=== PATIENT | female | born 1990 | race Caucasian/White ===

== ENCOUNTER → 2021-12-09 14:15 | Outpatient (CLI) | payer BC, SELFPAY ==
--- NOTE | ~2021-12-09 | US_ITS ---
US OB /maternal detail DATE: 12/09/2021 14:46 INDICATION: anatomy screening TECHNIQUE: Real-time imaging and Doppler analysis COMPARISON: None FINDINGS: Live valerio intrauterine gestation, fetus in vertex presentation. heart rate of 14 7 bpm. Anterior placenta, lower margin 5 cm above the internal os. Subjectively normal amount of amniotic fluid. cerebral ventricles, cerebellum, cisterna magna and nuchal fold appear normal. Normal cervical spine, thoracic and lumbar spine. Upper lip appears normal. Four-chamber heart. diaphragm is intact. Fluid is demonstrated in the stomach and urinary bladder. The kidneys are unr emarkable without hydronephrosis. Three-vessel umbilical cord with normal abdominal wall insertion. extremities are confirmed. Biparietal diameter 4.46 cm; 19 weeks 3 days Head circumference 16.99 cm; 19 weeks 4 days Abdominal circumference 13.84 cm; 19 weeks 2 days Femur length 2.88 cm cervical 18 weeks 6 days Composite age by Hadlock formula is 19 weeks 2 days +/- 1 week 2 days with GARFIELD of 05/13/2022, same as that determined by LMP. Estimated weight is 275.2 +/- 41.3 g. Estimated weight-GP: 36.0% Head circumference/abdominal circumference 1.23, within normal range of 1.09-1.26 Femur length/head circumference 16.93, within normal range of 16.30-18.73. IMPRESSION: Normal anatomy screen Composite age by Hadlock formula is 19 weeks 2 days +/- 1 week 2 days with GARFIELD of 05/13/2022, same as that determined by LMP Reviewed, dictated and finalized at [facility]. Reviewed, dictated and finalized at [facility].
== END ==
PROVIDERS: Visit Provider Obstetrics & Gynecology Gynecologic Oncology
DX: Z34.92 Encounter for supervision of normal pregnancy, unspecified, second trimester (principal); Z3A.19 19 weeks gestation of pregnancy
CPT/HCPCS: 76805

== ENCOUNTER 2023-09-14 00:12 | Day surgery (SDC) | payer OTHER, SELFPAY ==
[2023-09-08 15:00] VITALS: BMI 24.0
--- NOTE | 2023-09-08 15:06 | PC.NURSE ---
Report to the Outpatient Waiting Room, entrance under the green pavilion located off [facility], at time _0830_ on date _[id number]_. Planned Procedure Time: _1030_. Time changes happen often and if your time is changed the preop area will call you the afternoon before. - You and your visitor will be asked to self-screen and do not enter if you have any COVID symptoms. - A mask is optional within the hospital at this time. Patients may have clear liquids (water, carbonated beverages, clear teas, apple juice) until 3 hours prior to surgery with a maximum of 20 ounces. - No food from midnight until time of surgery Take the following medications with a SIP of water the morning of surgery: ___None DO NOT STOP ANY OF YOUR OTHER PRESCRIPTION MEDICATIONS PRIOR TO SURGERY ?EXCEPT THE FOLLOWING Medications to discontinue per physician None Date to take last dose Please no make-up, nail chinese, hairspray, perfume, deodorant, or body powder the day of surgery. No jewelry (including any body piercings) or valuables the day of surgery, leave them at home. Please take a shower or bath the night before, or the morning of, surgery with an antibacterial soap. Wear comfortable, loose fitting clothing. - Jewelry must be removed prior to entering the operating room. Rings and piercings that are not removed may be cut off. - The hospital will not accept responsibility for valuables. - Please leave all valuables, including medications, at home the day of surgery. If you are going home after surgery, a licensed skip load driver must drive you home. - NO public transportation without another adult if you receive anesthesia. - We recommend that an adult stay with you for 24 hours following discharge. - We also recommend that you do not drive, make important decision, drink alcoholic beverages, or take any drugs that were not prescribed by your health care provider for at least 24 hours after your discharge time. Follow any additional instructions given to you from your surgeon. If you or anyone in your household have experienced Covid symptoms in the past week, please notify your surgeon or the nurse liaison at the phone number below for possible testing. Telephone instructions given to _Shaina_and asked if any additional questions and then verbalized understanding. Patient advised to call surgeon office or pre surgery nurse liaison [phone] if any additional questions.
[2023-09-14] VITALS (10 sets, daily range): BP systolic 113–127; BP diastolic 56–82; PULSE 79–105; RESP 14–18; TEMP 36.2–36.6; O2SAT 95–100
--- NOTE | 2023-09-14 08:41 | P.PNAN_ITS ---
Anes - Initial Pre Proc Eval Procedure: Operation Date: 09/14/23 10:30 Proposed Procedures p Full Abdominoplasty with Liposuction - Malvin Sweeney MD Date/Time: 09/14/23 08:41 Surgeon: Malvin Sweeney MD Pre Op Diagnosis: skin laxity Patient Data Age: 33 Gender: F Height: 1.63 m Weight: 63.6 kg Allergies Allergy/AdvReac Type Severity Reaction Status Date / Time amoxicillin Allergy Unknown Hives Verified 09/14/23 08:37 Home Medications Medication Instructions Recorded Confirmed Type mirtazapine 7.5 mg tablet 7.5 mg PO HS 09/08/23 09/14/23 History Laboratory Tests 09/14/23 08:26 Cotinine Pending Patient hx anesthesia problems: none Family hx anesthesia problems: none Results Review: All pre-operative results and documents have been reviewed as part of the pre- operative evaluation. PMFSH Past Medical History Medical History Anxiety Smoker Surgical History Surgical History (Updated 09/14/23 @ 08:42 by Arnulfo Joy MD) H/O sinus surgery Social History Social History Smoking status: Former smoker Tobacco type: cigarettes Smoking end date: 07/26/23 Alcohol intake: current Living arrangements: with family Spiritual care concerns: No Anes - Eval Final PreProcedure Day of Procedure 09/14/23 08:41 Patient weight: normal Heart: regular rate and rhythm Lungs: clear to auscultation Airway: Mallampati scale class II Neurological: alert and oriented Last oral intake: >/= 8 hours ASA classification: II Emergent: no Anesthetic plan: proceed Anesthesia type and monitoring: general ETT Results Review: All pre-operative results and documents have been reviewed as part of the pre- operative evaluation. Informed Consent: The patient's anesthetic plan and its attendant risks and benefits were discussed with the patient/family/POA. Questions were solicited and answers provided to the satisfaction of the patient/family/POA.
[2023-09-14 08:45] LABS: Urine Cotinine NEGATIVE
[2023-09-14] MEDS: LACTATED RINGERS 1,000 ML 30 ML IV CONT ×3 (08:50→16:17)
[2023-09-14] MEDS: SCOPOLAMINE 1 MG PATCH 1 PATCH TRANSDERM (09:25)
--- NOTE | 2023-09-14 10:00 | WPDHPUPDATE1 ---
History and Physical Update Update Date/Time: 09/14/23 10:00 History and Physical has been reviewed, including an updated exam of the patient. There are NO changes in the patient's condition. Risks, benefits, and alternatives have been discussed and questions answered. Patient agrees to proceed with procedure.
--- NOTE | 2023-09-14 10:01 | W.PM.PROC2 ---
Procedure Note - Detailed Date of Procedure 09/14/23 Pre-op Diagnosis skin laxity Post-op Diagnosis Same Procedure Performed Progressive tension abdominoplasty with suction lipectomy Surgeon Malvin Sweeney MD Anesthesia General Findings Tissue removed: 674 grams Lipoaspirate: 1200 cc Description of Procedure They are here today for the above procedures. Previously and again today the risks, benefits, alternatives were discussed in extensive detail. I wanted them to be very realistic about the risks involved as well as expectations. We discussed aftercare and what to monitor for. I was very upfront about the risks of wound breakdown leading to loss of skin, open wounds, and need for additional procedures with permanent abdominal deformity. We discussed DVT/PE risks and management. Made sure answered all of their questions to their satisfaction today and consent was obtained. They were marked in the preoperative holding area with their verification. The patient was taken to the operating room. Anesthesia was provided by anesthesiology. A Jack catheter was started. Placed prone on the operating room table with care taken to protect from injury. Prepped and draped in a standard sterile fashion. A surgical time-out was taken. Stab incisions were made and tumescent solution was infiltrated. Once adequate time was allowed for hemostasis a 5mm basket and 3mm multi hole cannula were utilized to complete suction lipectomy based on S.A.F.E. technique in multiple planes and passes. Suction lipectomy continued to result based on pre-operative planning, intra-operative observation, and rolling pinch test which were in full agreement. Patient was then placed supine with care taken to protect from injury. I placed the patient in a flexed position to verify the upper and lower markings would reach. I then placed supine. A thorough abdominal examination was completed. Stab incisions were made and tumescent solution infiltrated. Stab incisions were made and tumescent solution was infiltrated. Once adequate time was allowed for hemostasis a 5mm basket and 3mm multi hole cannula were utilized to complete suction lipectomy based on S.A.F.E. technique in multiple planes and passes. Suction lipectomy continued to result based on pre-operative planning, intra-operative observation, and rolling pinch test which were in full agreement. A 10 blade was used to make the upper incision. I continued dissection down to the level of fascia. Elevated just what was necessary for repair of the diastasis. I then again flexed the bed to verify the upper skin flap would reach the lower markings without tension. Once verified I placed her supine once again and a 10 blade used to make the lower incision. I elevated up to level the umbilicus and left the umbilicus intact on a well-vascularized stalk. The intervening tissue was removed. A 2 mm blunt cannula with 0.5% bupivicaine was injected deep to the fascia bilaterally. I plicated the diastasis recti using 0 PDO stratafix barbed suture. This was in 2 separate layers using 2 separate sutures as well. I repaired around the umbilicus leaving plenty of room for well-vascularized stalk of the umbilicus with 2-0 PDS. I also repaired lateral to the rectus using two layers of 0 PDO stratafix. The patient was flexed and starting from superior to inferior began plication using 2-0 Vicryl to obliterate all space in a standard progressive tension fashion. At the umbilicus I marked out the location of the skin and inset this with 3-0 Monocryl and 4-0 Vicryl. I continued the remainder of the plication using 2-0 Vicryl until I reached my lower planned scar line. I trimmed any excess skin of the upper flap making sure this was a tension-free closure. I then approximated using a 3 point suture. 15 Lv drain placed. Closed with 2-0 Vicryl followed by 3-0 stratafix ,running subcuticular 4-0 Monocryl, and tissue
[2023-09-14] MEDS: TRANEXAMIC ACID 1,000MG/ISO100 1,000 MG/100 ML BAG 200 MG IVPB (10:10)
[2023-09-14] MEDS: LACTATED RINGERS IRRIG 1,000 ML, LIDOCAINE HCL 1% LOCAL INJ 50 ML, EPINEPHrine HCL INJ ... INFILTRATE (10:10)
[2023-09-14] MEDS: ceFAZolin 2 GM/D5W 50 ML 2 GM/50 ML BAG IVPB (10:10)
[2023-09-14] MEDS: BUPIVACAINE/EPINEPHRINE 0.5% 50 ML VIAL 60 ML INFILTRATE (10:10)
[2023-09-14] MEDS: fentaNYL CITRATE INJ (*CRX) 100 MCG/2 ML VIAL 25 MCG IV PUSH ×2 (14:32→14:37)
[2023-09-14] MEDS: ONDANSETRON INJ 4 MG/2 ML VIAL IV PUSH (15:11)
[2023-09-14] MEDS: diphenhydrAMINE HCl INJ 50 MG/ML VIAL 12.5 MG IV PUSH (16:17)
[2023-09-14] MEDS: oxyCODONE HCL (*CRX) 5 MG TAB IR PO (16:42)
== END 2023-09-14 17:00 | disposition home or self-care (01) ==
PROVIDERS: PCP Pediatrics; Visit Provider Surgery Plastic and Reconstructive Surgery
PROC: (CPT 15830; principal; 2023-09-14 10:30)
DX: Z41.1 Encounter for cosmetic surgery (principal); L57.4 Cutis laxa senilis; Z87.891 Personal history of nicotine dependence
CPT/HCPCS: 15830; 15847; 15877; 80307; A9270; J0171; J0330; J0690; J1100; J1170; J1200; J2250; J2405; J2704; J2710; J3010; J7120

== ENCOUNTER 2024-05-29 12:54 | Outpatient (CLI) | payer OTHER, SELFPAY ==
--- NOTE | ~2024-05-29 | CT_ITS ---
Non-contrast CT scan of the Abdomen and Pelvis Clinical indication: Abdominal pain Technique: 2.5 mm axial scans were obtained through the abdomen and pelvis without intravenous or or al contrast. Dose reduction technique was used on this scan by utilizing automated exposure control a nd iterative reconstruction technique. The dose-length product (DLP) was 297.06 mGy-cm. Findings: Images through the lung bases reveal no abnormalities. There is no evidence of renal or ureteral calculi. The kidneys and the ureters are nondilated. The liver, spleen, pancreas, and adrenals appear normal. Cholecystectomy clips are present. There is no aortic aneurysm. There is no evidence of bowel obstruction. Images through the pelvis were performed. There is no evidence of ascites or lymphadenopathy. Urinary bladder unremarkable. No definite adnexal mass seen. Trace pelvic ascites. Impression: No significant abnormality seen. Reviewed, dictated and finalized at [facility]. Impression: No significant abnormality seen.
== END 2024-05-29 12:55 | disposition home or self-care (01) ==
LOC: MICIMG 12:59
PROVIDERS: PCP Pediatrics; Visit Provider Nurse Practitioner Family
DX: R10.84 Generalized abdominal pain (principal); R14.0 Abdominal distension (gaseous); K59.09 Other constipation
CPT/HCPCS: 74176

== ENCOUNTER 2024-08-27 07:08 | Outpatient (CLI) | payer OTHER, SELFPAY ==
--- NOTE | ~2024-08-27 | MR_ITS ---
EXAMINATION: MR pelvis wo con DATE: 08/27/2024 07:50 INDICATION: Left piriformis syndrome. TECHNIQUE: Magnetic resonance imaging (MRI) of the pelvis was performed without intravenous contrast. COMPARISON: CT abdomen and pelvis 05/29/2024 FINDINGS: There are no dilated loops of bowel. There are no pathologically enlarged lymph nodes. There is no fr ee intraperitoneal fluid. The uterus and adnexa are normal. The musculature is normal. The piriformis muscles are normal and symmetric. There is mild osteoarthritis of the sacroiliac joints. There is mi ld tendinopathy of left hamstring origin. The gluteus minimus and gluteus medius tendons are normal. The iliopsoas tendons are normal. There is mild bilateral trochanter bursitis. The sciatic nerves are normal. There is mild lumbar spondylosis. IMPRESSION: 1. Normal piriformis muscles. Reviewed, dictated and finalized at [facility] [employer]
== END 2024-08-27 07:09 | disposition home or self-care (01) ==
PROVIDERS: PCP Pediatrics
DX: G57.02 Lesion of sciatic nerve, left lower limb (principal)
CPT/HCPCS: 72195

== ENCOUNTER 2025-01-23 12:44 | Outpatient (CLI) | payer OTHER, SELFPAY ==
--- NOTE | ~2025-01-23 | MR_ITS ---
MRI of the lumbar spine Clinical History: Back pain Technique: Axial T2-weighted images, and sagittal T1-weighted, T2-weighted, and T2 fat-sat images wer e acquired. Findings: There is no fracture or subluxation of the lumbar spine. Vertebral bodies maintain normal a lignment. No bone marrow signal abnormality seen. At L1-L2, L2-L3, L3-L4, there is no disc bulge or herniation. There are mild facet joint degenerative changes at these levels. No spinal canal stenosis or neural foraminal narrowing at these levels. At L4-L5, there is mild disc bulge with moderate facet arthropathy. No central canal stenosis. There is moderate to advanced left neural foraminal narrowing, and moderate right neural foraminal narrowin g. At L5-S1, there is disc bulge with small annular fissure. There is minimal facet arthropathy. No cent ral canal stenosis. There is moderate to advanced bilateral neural foraminal narrowing. Paravertebral soft tissues are unremarkable. Impression: Moderate degenerative spondylosis at L4-L5 and L5-S1, as detailed above, with bilateral neural forami nal narrowing at these levels. Reviewed, dictated and finalized at location . Impression: Moderate degenerative spondylosis at L4-L5 and L5-S1, as detailed above, with b ilateral neural foraminal narrowing at these levels.
== END 2025-01-23 12:45 | disposition home or self-care (01) ==
LOC: MICIMG 12:54
PROVIDERS: PCP Nurse Practitioner Family; Visit Provider Nurse Practitioner Family
DX: M47.816 Spondylosis without myelopathy or radiculopathy, lumbar region (principal); M47.817 Spondylosis without myelopathy or radiculopathy, lumbosacral region; M48.061 Spinal stenosis, lumbar region without neurogenic claudication; M48.07 Spinal stenosis, lumbosacral region
CPT/HCPCS: 72148